=== PATIENT | female | born 1980 | race African-American/Black ===

== ENCOUNTER 2025-07-27 07:29 | Emergency (ER) | payer BC, OTHER ==
--- NOTE | 2025-07-27 09:54 | RAD REPORT ---
EXAMINATION: US LEFT LOWER EXTREMITY VENOUS DOPPLER CLINICAL INDICATION: Lower extremity discomfort TECHNIQUE: Complete bilateral duplex sonography of the LEFT lower extremity veins was performed. The examination included compression for vein patency, color Doppler imaging and flow augmentation in response to distal compression of the distal external iliac, common femoral, femoral, popliteal, tibi al, and great and small saphenous veins. COMPARISON: No prior exam. FINDINGS: Duplex sonography testing of the veins of the LEFT lower extremity was performed. Linear echogenic ma terial in the popliteal vein compatible with old thrombus. No acute DVT seen. IMPRESSION: No acute DVT is suspected. 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
--- NOTE | 2025-07-27 10:02 | EDPHYS ---
Physician Documentation [facility] Name: Anuja Buchanan Age: 45 yrs Sex: Female : 1980 Arrival Date: 07/27/2025 Time: 07:29 Bed 13 Private MD: ED Physician Issa Hdz HPI: 07/27 07:49 This 45 yrs old Black Female presents to ER via Unassigned with complaints of Leg ms3 Heaviness- LT, Panic Attack. 07:49 45-year-old female with past medical history of DVT, diabetes currently diet ms3 controlled, hypertension currently diet controlled presents to the emergency department for left leg heaviness. Patient states she has previously had DVTs in her leg and the sensation is similar. Patient is concerned she may have a DVT in her left lower extremity. Patient denies pain. Patient states all night she was concerned and unable to sleep as she is afraid she has a DVT. Historical: - Allergies: 07:52 Sulfa (Sulfonamide Antibiotics); db - PMHx: 07:52 blood clots; Hypertensive disorder; db - PSHx: 07:52 Gastric Bypass; db - Immunization history:: Adult Immunizations unknown. - Infectious Disease History:: Denies. - Social history:: Smoking status: unknown. ROS: 07:51 Constitutional: Negative for fever, and chills. Cardiovascular: Negative for chest ms3 pain, and palpitations. Respiratory: Negative for shortness of breath, cough, wheezing, and pleuritic chest pain, Abdomen/GI: Negative for abdominal pain, nausea, vomiting, diarrhea, and constipation, Back: Negative for injury and pain, Skin: Negative for injury, rash, and discoloration, 07:51 MS/extremity: Positive for Left leg discomfort, Exam: 07:51 Constitutional: This is a well developed, well nourished patient who is awake, alert, ms3 and in no acute distress. Cardiovascular: Regular rate and rhythm with a normal S1 and S2. No gallops, murmurs, or rubs. Normal PMI, no JVD. No pulse deficits. Respiratory: Lungs have equal breath sounds bilaterally, clear to auscultation and percussion. No rales, rhonchi or wheezes noted. No increased work of breathing, no retractions or nasal flaring. Abdomen/GI: Soft, non-tender, with normal bowel sounds. No distension or tympany. No guarding or rebound. No evidence of tenderness throughout. Skin: Warm, dry with normal turgor. Normal color with no rashes, no lesions, and no evidence of cellulitis. MS/ Extremity: Pulses equal, no cyanosis. Neurovascular intact. Full, normal range of motion. Vital Signs: 07:42 BP 127 / 73; Pulse 72; Resp 18; Temp 98.2(O); Pulse Ox 98% ; Weight 144.24 kg; Height 5 db ft. 7 in. ; 09:00 BP 130 / 71; Pulse 67; Resp 18; Pulse Ox 100% on R/A; db 10:30 BP 111 / 74; Pulse 68; Resp 16; Pulse Ox 100% on R/A; db 07:42 Body Mass Index 49.81 (144.24 kg, 170.18 cm) db MDM: 07:38 Medical Screening Exam initiated ms3 07:51 Differential diagnosis: DVT vs Anxiety vs Edema. ms3 10:05 Data reviewed: vital signs, nurses notes, and as a result, I will discharge patient. ms3 Counseling: I had a detailed discussion with the patient and/or guardian regarding the historical points, exam findings, and any diagnostic results supporting the discharge/admit diagnosis, radiology results, the need for outpatient follow up, to return to the emergency department if symptoms worsen or persist or if there are any questions or concerns that arise at home. Special discussion: I discussed with the patient/guardian in detail that at this point there is no indication for admission to the hospital. It is understood, however, that if the symptoms persist or worsen the patient needs to return immediately for re-evaluation. ED course: Discussed ultrasound findings showing old clot with patient. Patient to follow-up with her primary care physician in 2 to 3 days. Patient understands agrees with plan. All questions were answered. Return precautions were discussed include worsening symptoms, or any other concerns.. 07/27 07:51 Order name: Extremity Venous [employer] ; Complete Time: 10:00 ms3 Administered Medications: No medications were administered Disposition Summary: 07/27/25 10:02 Discharge Ordered Notes: Location: Home ms3 Condition: Stable ms3 Diagnosis - Left leg discomfort ms3 Followup: ms3 - With: Private Physician - When: 2 - 3 days - Reason: Recheck today's complaints Discharge Instructions: - Discharge Summary Sheet ms3 - Musculoskeletal Pain ms3 Forms: - Medication Reconciliation Form ms3 - Antibiotic Education ms3 - Prescription Opioid Use ms3 - Patient Portal Instructions ms3 - Leadership Thank You Letter ms3 Signatures: Dispatcher [employer] Issa Sanchez DO DO ms3 Sasha Guaman, RN RN db
--- NOTE | 2025-07-27 10:02 | ER ---
Nurse's Notes [facility] Name: Anuja Buchanan Age: 45 yrs Sex: Female : 1980 Arrival Date: 07/27/2025 Time: 07:29 Bed 13 Private MD: Diagnosis: Left leg discomfort Presentation: 07/27 07:42 Chief complaint: Patient states: LEFT LEG HEAVINESS SINCE YESTERDAY, ANXIETY THIS AM, db TOOK HYDROXYZINE STILL FEELING ANXIOUS. HASN'T SLEPT SINCE YESTERDAY MORNING. HISTORY OF BLOOD CLOTS IN LEGS. STOPPED TAKING BLOOD THINNERS. STATES HEAVINESS FEELS LIKE WHEN HAD A PREVIOUS BLOOD CLOT. Coronavirus screen: Client denies travel out of the [place] in the last 14 days. At this time, the client does not indicate any symptoms associated with coronavirus-19. Ebola Screen: Patient negative for fever greater than or equal to 101.5 degrees Fahrenheit, and additional compatible Ebola Virus Disease symptoms Patient denies exposure to infectious person. Patient denies travel to an Ebola-affected area in the 21 days before illness onset. No symptoms or risks identified at this time. Initial Sepsis Screen: Does the patient meet any 2 criteria? No. Patient's initial sepsis screen is negative. Does the patient have a suspected source of infection? No. Patient's initial sepsis screen is negative. Risk Assessment: Do you want to hurt yourself or someone else? Patient reports no desire to harm self or others. Onset of symptoms was July 26, 2025. 07:42 Method Of Arrival: Ambulatory db 07:42 Acuity: DELBERT 3 db Triage Assessment: 07:52 General: Appears in no apparent distress. comfortable, Behavior is calm, cooperative. db Pain: Complains of pain in left leg. Neuro: Level of Consciousness is awake, alert, obeys commands, Oriented to person, place, time, situation. Respiratory: Airway is patent Respiratory effort is even, unlabored, Respiratory pattern is regular, symmetrical. Musculoskeletal: Reports pain in left leg. Historical: - Allergies: 07:52 Sulfa (Sulfonamide Antibiotics); db - PMHx: 07:52 blood clots; Hypertensive disorder; db - PSHx: 07:52 Gastric Bypass; db - Immunization history:: Adult Immunizations unknown. - Infectious Disease History:: Denies. - Social history:: Smoking status: unknown. Screenin:57 [facility] ED Fall Risk Assessment (Adult) History of falling in the last 3 months, db including since admission No falls in past 3 months (0 pts) Confusion or Disorientation No (0 pts) Intoxicated or Sedated No (0 pts) Impaired Gait No (0 pts) Mobility Assist Device Used No (0 pt) Altered Elimination No (0 pt) Score/Fall Risk Level 0 - 2 = Low Risk Oriented to surroundings, Maintained a safe environment. Abuse screen: Denies threats or abuse. Denies injuries from another. Nutritional screening: No deficits noted. Tuberculosis screening: No symptoms or risk factors identified. Assessment: 07:54 Reassessment: Patient appears in no apparent distress at this time. Patient and/or db family updated on plan of care and expected duration. Pain level reassessed. Patient is alert, oriented x 3, equal unlabored respirations, skin warm/dry/pink. SEE TRIAGE FOR INITIAL ASSESSMENT. General: Appears in no apparent distress. comfortable, Behavior is calm, cooperative. Neuro: Level of Consciousness is awake, alert, obeys commands, Oriented to person, place, time, situation. Respiratory: Airway is patent Respiratory effort is even, unlabored, Respiratory pattern is regular, symmetrical. 09:30 Reassessment: Patient appears in no apparent distress at this time. Patient and/or db family updated on plan of care and expected duration. Pain level reassessed. Patient is alert, oriented x 3, equal unlabored respirations, skin warm/dry/pink. 10:40 Reassessment: Patient appears in no apparent distress at this time. Patient and/or db family updated on plan of care and expected duration. Pain level reassessed. Patient is alert, oriented x 3, equal unlabored respirations, skin warm/dry/pink. General: Appears in no apparent distress. comfortable, Behavior is calm, cooperative. Vital Signs: 07:42 BP 127 / 73; Pulse 72; Resp 18; Temp 98.2(O); Pulse Ox 98% ; Weight 144.24 kg; Height 5 db ft. 7 in. ; 09:00 BP 130 / 71; Pulse 67; Resp 18; Pulse Ox 100% on R/A; db 10:30 BP 111 / 74; Pulse 68; Resp 16; Pulse Ox 100% on R/A; db 07:42 Body Mass Index 49.81 (144.24 kg, 170.18 cm) db ED Course: 07:36 Patient arrived in ED. cj3 07:38 Issa Hdz DO is Attending Physician. ms3 07:46 Sasha Guaman, RN is Primary Nurse. db 07:52 Triage completed. db 07:52 Arm band placed on Patient placed in an exam room. db 07:56 Patient taken to ultrasound. db 08:37 Extremity Venous [employer] US In Process Unspecified. EDMS 10:40 Patient has correct armband on for positive identification. Bed in low position. Call db light in reach. Side rails up X 1. Provided Education on: DISCHARGE AND FOLLOWUP. Pulse ox on. NIBP on. 10:40 No provider procedures requiring assistance completed. Patient did not have IV access db during this emergency room visit. Administered Medications: No medications were administered Medication: 10:40 VIS not applicable for this client. db Outcome: 10:02 Discharge ordered by MD. ms3 10:40 Discharged to home ambulatory, db 10:40 Condition: stable 10:40 Discharge instructions given to patient, Instructed on discharge instructions, follow up and referral plans. 10:46 Patient left the ED. db Signatures: Dispatcher [employer] EDMS Issa Hdz DO DO ms3 Sasha Guaman, RN RN db Yandy Melchor cj3
[2025-07-27 10:59] VITALS: BP 127/73; TEMP 98.2; O2SAT 98
== END 2025-07-27 10:46 | disposition home or self-care (01) ==
LOC: ER 07:29
DX: M79.605 Pain in left leg (principal); Z86.718 Personal history of other venous thrombosis and embolism
CPT/HCPCS: 93971; 99284